=== PATIENT | female | born 1970 | race Hispanic/Latino ===

== ENCOUNTER 2018-11-27 17:17 | Emergency (ER) | payer BC ==
[2018-11-27 17:30] VITALS: BP 149/93
--- NOTE | 2018-11-27 17:30 | Emergency Department Report ---
Chief Complaint: Back Pain/Injury Stated Complaint: BACK PAIN - HPI History of Present Illness: a/c back pain no new trauma no fever no dysuria To [facility] MSE completed MSE screening note: Focused history and physical exam performed. Due to findings the following was ordered: ED Disposition for MSE Condition: Stable
[2018-11-27] MEDS ORDERED: DECADRON IM ONE (17:31)
[2018-11-27] MEDS ORDERED: FLEXERIL PO ONE (17:31)
--- NOTE | 2018-11-27 17:31 | Emergency Department Report ---
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 no dysuria has flares from time to time postured and in pain during triage in wheelchair MD Complaint: back pain -: Gradual Similar Symptoms Previously: Yes Place: home, work Radiation: left leg, right leg Severity: severe Consistency: constant Improves With: none, other (otc meds not helping) Worsens With: movement Associated Symptoms: denies other symptoms - Related Data Previous Rx's Medication Instructions Recorded Last Taken Type Indomethacin [Indocin] 25 mg PO BID 5 Days #10 capsule 07/31/18 Unknown Rx Tizanidine HCl [Zanaflex] 2 mg PO Q6H PRN #20 capsule 07/31/18 Unknown Rx Butalb/Acetamin/Caff 50-325-40 1 each PO Q4H PRN #12 tablet 08/06/18 Unknown Rx [Fioricet] Acetaminophen with Codeine 1 each PO Q6H PRN #12 tablet 11/27/18 Unknown Rx [Tylenol with Codeine #3 Tablet] Cyclobenzaprine [Flexeril] 10 mg PO TID PRN #10 tablet 11/27/18 Unknown Rx predniSONE [Deltasone] 20 mg PO DAILY #5 tablet 11/27/18 Unknown Rx Allergies Allergy/AdvReac Type Severity Reaction Status Date / Time No Known Allergies Allergy Unverified 07/31/18 08:43 ED Review of Systems ROS: Stated complaint: BACK PAIN Other details as noted in HPI Comment: All other systems reviewed and negative Constitutional: denies: chills Eyes: denies: eye pain ENT: denies: ear pain Respiratory: denies: cough Cardiovascular: denies: dyspnea on exertion Endocrine: denies: excessive sweating Gastrointestinal: denies: nausea Genitourinary: denies: urgency Musculoskeletal: as per HPI, back pain Skin: denies: lesions Neurological: denies: headache Psychiatric: denies: anxiety Hematological/Lymphatic: denies: easy bleeding ED Past Medical Hx - Past Medical History HypoThyroid; back pain Psychiatric history: no pertinent history Family history: no significant family history - Social History Drug use: none ED Back Pain Physical Exam - Exam General: Vital signs noted. No distress. Alert and acting appropriately. Back/Abdomen: Yes Straight Leg Raise Pain, No Abdominal Tenderness, No Perithoracic Tenderness, No Perilumbar Tenderness, No Sacroiliac Tenderness, No Flank Tenderness Neuro: Yes Normal Sensation, Yes Motor Weakness, Yes Normal DTR's, Yes Normal Gait (post medications pt now ambulatory) ED Course Vital Signs 11/27/18 17:28 Temperature 98.6 F Pulse Rate 64 Respiratory 20 Rate Blood Pressure 149/93 O2 Sat by Pulse 98 Oximetry ED Medical Decision Making - Medical Decision Making no imaging due to no new trauma a/c back pain with flare no urinary symptoms postured in wheelchair in pain no focal neuro def no s/s cauda equina medicated initially with IM depomedrol/flexeril and percocet. after approx 20 min still with pain medicated with toradol 60 mg IM about 30 min later was able to ambulate Vital Signs 11/27/18 17:28 Temperature 98.6 F Pulse Rate 64 Respiratory 20 Rate Blood Pressure 149/93 O2 Sat by Pulse 98 Oximetry Critical care attestation.: If time is entered above; I have spent that time in minutes in the direct care of this critically ill patient, excluding procedure time. ED Disposition Clinical Impression: Back pain, Muscle spasm Disposition: - TO HOME OR SELFCARE Is pt being admited?: No Does the pt Need Aspirin: No Condition: Stable Instructions: Muscle Spasm (ED) Additional Instructions: WARM BATHS AND COMPRESSES MEDS ORDERED TODAY FOLLOW UP WITH ORTHO IF PERSISTS PROPER CAREFUL BODY MECHANICS Prescriptions: predniSONE [Deltasone] 20 mg PO DAILY #5 tablet Cyclobenzaprine [Flexeril] 10 mg PO TID PRN #10 tablet PRN Reason: Muscle Spasm Acetaminophen with Codeine [Tylenol with Codeine #3 Tablet] 1 each PO Q6H PRN #12 tablet PRN Reason: Pain , Severe (7-10) Referrals: JOHN WOODARD MD [Staff Physician] - 3-5 Days Forms: Work/School Release Form(ED) Time of Disposition: 18:34
[2018-11-27] MEDS ORDERED: PERCOCET 5/325 PO ONE (17:32)
[2018-11-27] MEDS ORDERED: SOLU-Medrol IM ONE (17:32)
[2018-11-27] MEDS ORDERED: TORADOL IM ONE (18:12)
== END 2018-11-27 19:15 | disposition home or self-care (01) ==
LOC: ED 17:17
DX: M62.830 Muscle spasm of back (principal); E03.9 Hypothyroidism, unspecified
CPT/HCPCS: 96372; 99282; J1100; J1885; J2920